=== PATIENT | male | born 1960 | race Caucasian/White ===

== ENCOUNTER → 2016-11-11 | Outpatient (CLI) | payer BC ==
[2015-08-28 16:30] VITALS: BP 129/78
[~2016-11-11] MED LIST: ALPR0.5T6 PO; ESCI5TAB24 PO; LEVO50TA5 PO; MORPHINE SULFATE 4 MG/ML DISP.SYRIN. IM ONE; MORPHINE SULFATE 4 MG/ML DISP.SYRIN. IV ONE; MORPHINE SULFATE 4 MG/ML DISP.SYRIN. ONE; TRAM50TA PO
--- NOTE | 2016-11-11 07:59 | RAD ---
EXAM: Abdomen sonogram. HISTORY: Right upper quadrant pain. TECHNIQUE: Sonographic imaging of the abdomen was performed. COMPARISON: None. FINDINGS: The liver is normal in size. No focal hepatic lesion is seen. The gallbladder is contracted, limiting evaluation. The kidneys are normal in size. No solid or cystic renal lesion is seen. There is no hydronephrosis. The pancreas is secured to bowel gas. The spleen is mildly enlarged, measuring 13.1 cm. The aorta and inferior vena cava are unremarkable. IMPRESSION: 1. Contracted gallbladder possibly due to a postprandial status of the patient. This limits evaluation. 2. Mild splenomegaly.
--- NOTE | 2016-11-11 10:41 | RAD ---
Hepatobiliary scan without ejection fraction History: Right upper quadrant pain for 3 weeks. Comparison: Ultrasound abdomen 11/11/2016. Procedure: Serial static images are obtained of the liver and biliary system in the frontal and right lateral projections following IV administration of 5.5 mCi of 99 M technetium Choletec. The initial 60 minutes of imaging demonstrated questionable transient mild filling of the gallbladder. Consequently, patient was administered 4 mg intravenous morphine and additional 30 minutes of imaging was performed. Findings: There is homogeneous distribution throughout the liver. There is normal emptying into the biliary system and small bowel. The initial 60 minutes of imaging demonstrated minimal transient filling of the gallbladder. There is confidently filling of the gallbladder on the post morphine images; there is no evidence of acute cholecystitis. Impression: 1. No evidence of acute cholecystitis. 2. Suboptimal filling of the gallbladder. It is uncertain if this is due to patient lack of NPO status versus biliary dyskinesia or chronic cholecystitis. Recommend clinical correlation. 3. No evidence of biliary obstruction.
== END | disposition home or self-care (01) ==
LOC: US 06:24
PROVIDERS: ATTEND Internal Medicine Gastroenterology
DX: R10.11 Right upper quadrant pain (principal)
CPT/HCPCS: 76700; 78226; 96374; A9537; J2270

== ENCOUNTER → 2019-11-23 | Outpatient (CLI) | payer BC ==
[2015-08-28 16:30] VITALS: BP 129/78
[~2019-11-23] MED LIST changes: -ESCI5TAB24 PO; +ESCITALOPRAM OXA5 MG PO; -MORPHINE SULFATE 4 MG/ML DISP.SYRIN. IM ONE; -MORPHINE SULFATE 4 MG/ML DISP.SYRIN. IV ONE; -MORPHINE SULFATE 4 MG/ML DISP.SYRIN. ONE
--- NOTE | 2019-11-23 15:14 | KCIC ---
MRI of the brain without contrast 11/23/2019 Clinical History: Migraine headaches. Technique: Unenhanced T1-weighted sagittal and axial, T2-weighted axial and coronal and FLAIR, gradient echo and diffusion-weighted axial images of the brain were obtained. Findings: No previous imaging studies are available for comparison. There is mild generalized parenchymal atrophy. Patchy and several small focal areas of increased signal intensity are seen within the periventricular and subcortical white matter of both cerebral hemispheres on the FLAIR and T2-weighted images consistent with areas of minimal small vessel ischemic disease. No acute parenchymal abnormality is seen. No extra-axial fluid collection is seen. There is no MRI evidence of acute ischemia/infarction. Mild mucosal thickening in seen scattered throughout the paranasal sinuses. There are minimal bilateral mastoid effusions. Normal flow voids are seen within the major vascular structures surrounding the brain parenchyma. Impression: No acute parenchymal abnormality is seen. Electronically signed by: Jorge L Taveras MD (11/23/2019 3:11 PM) [id number]
== END | disposition home or self-care (01) ==
LOC: KCIC MRI 13:30
PROVIDERS: ATTEND Physician Assistant Medical
DX: G31.89 Other specified degenerative diseases of nervous system (principal); J34.89 Other specified disorders of nose and nasal sinuses; G43.909 Migraine, unspecified, not intractable, without status migrainosus
CPT/HCPCS: 70551